=== PATIENT | female | born 1930 | race Asian ===

== ENCOUNTER 2016-04-06 20:01 | Inpatient (IN) | payer OTHER ==
[~2016-04-06] VITALS: Ht 149.9 cm; Wt 44.0 kg
[~2016-04-06 20:01] MED LIST: ACET-66 PO; AMIO200T44 PO; BISA10S PR; DSS100 PO; INSNOV SQ; LORA10TA60 PO; MAAL30 PO; MOM30 PO; PANT40TA25 PO; RIVA15T PO; SIMV-259 PO
[2016-04-06 20:37] LABS: BASOPHILS % (AUTO) 0.2 % (0.0-2.0); EOSINOPHILS % (AUTO) 0.5 % (1.0-6.0); HEMATOCRIT 41.2 % (36-46); HEMOGLOBIN 13.8 g/dL (12.0-16.0); LYMPHOCYTES # (AUTO) 1.9 K/uL (1.0-4.8); MEAN CORPUSCULAR HEMOGLOBIN 29.1 pg (26.0-34.0); MEAN CORPUSCULAR HGB CONC 33.5 G/dL (31.0-37.0); MEAN CORPUSCULAR VOLUME 87 fL (80-100); MONOCYTES # (AUTO) 0.8 K/uL (0.1-1.0); MONOCYTES % (AUTO) 5.1 % (2.0-9.0); NEUTROPHILS # (AUTO) 13.1 K/uL (1.8-7.7); NEUTROPHILS % (AUTO) 82.2 % (40.0-70.0); PLATELET COUNT (AUTO) 230 K/uL (150-450); RED BLOOD CELL COUNT(AUTO) 4.73 MIL/uL (4.00-5.20); RED CELL DISTRIBUTION WIDTH 11.9 % (11.5-14.5); WHITE BLOOD COUNT (AUTO) 15.9 K/uL (4.5-11.0)
[2016-04-06] MEDS ORDERED: LEVO50TA11 PO (20:39)
[2016-04-06] MEDS ORDERED: ATOR10TA69 PO (20:39)
[2016-04-06] MEDS ORDERED: METO-325 PO (20:39)
[2016-04-06] MEDS ORDERED: AMLO5TAB66 PO (20:39)
[2016-04-06] MEDS ORDERED: ROSU20 PO (20:39)
[2016-04-06] MEDS ORDERED: LOSA25TA21 PO (20:39)
[2016-04-06] MEDS ORDERED: ASPI-996 PO (20:39)
[2016-04-06] MEDS ORDERED: PARO10TA71 PO (20:39)
[2016-04-06] MEDS ORDERED: NITR0.4T SL (20:39)
[2016-04-06] MEDS ORDERED: METO-323 PO (20:39)
[2016-04-06] MEDS ORDERED: METF500T4 PO (20:39)
[2016-04-06 20:55] LABS: ALANINE AMINOTRANSFERASE 22 U/L (12-78); ALBUMIN 3.5 g/dL (3.4-5.0); ANION GAP 10 mmol/L (8-16); ASPARTATE AMINOTRANSFERASE 20 U/L (15-37); BILIRUBIN,TOTAL 0.4 mg/dL (0.1-1.0); CALCIUM, TOTAL 8.9 mg/dL (8.8-10.5); CARBON DIOXIDE 27 mmol/L (22-29); CHLORIDE 99 mmol/L (98-107); CREATINE KINASE, TOTAL 48 U/L (26-192); CREATININE 1.04 mg/dL (0.60-1.30); GLOMERULAR FILTR. RATE CALC 51 mL/min (>60); POTASSIUM 3.7 mmol/L (3.5-5.1); SODIUM SERUM 136 mmol/L (136-145); TOTAL PROTEIN, SERUM 7.8 g/dL (6.4-8.2)
[2016-04-06 20:57] LABS: INR 1.4 (0.9-1.1); PROTHROMBIN TIME 15.3 SEC (9.4-11.6)
[2016-04-06 21:03] LABS: B-TYPE NATRIURETIC PEPTIDE 219 pg/mL (0-100)
[2016-04-06 21:20] LABS: GLUCOSE,POINT OF CARE 259 MG/DL (70-110)
[2016-04-06 21:25] LABS: UREA NITROGEN, BLOOD 17 mg/dL (7-18)
[2016-04-06] MEDS ORDERED: AMIODARONE HCL 50 MG/ML 3 ML VIAL IVP ONE (21:30)
[2016-04-06 21:55] LABS: ADD UA MICROSCOPIC YES; APPEARANCE,URINE CLOUDY (CLEAR); GLUCOSE, URINE (UA) 100 mg/dL (NEGATIVE); KETONES,URINE NEGATIVE (NEGATIVE); LEUKOCYTE ESTERASE ,URINE SMALL (NEGATIVE); OCCULT BLOOD,URINE TRACE (NEGATIVE); PH,URINE 6.5 (5.0-8.0); PROTEIN,URINE POS 1+ (NEGATIVE)
[2016-04-06 21:59] LABS: WBC,URINE 26-50 /HPF (0-5)
[2016-04-06 22:00] LABS: SQUAMOUS EPITHELIAL CELL,UR Moderate /LPF (None Seen)
[2016-04-06] MEDS ORDERED: DIGOXIN 250 MCG/ML 2 ML AMP IVP ONE (22:45)
[2016-04-06] MEDS ORDERED: ZOLPIDEM TARTRATE 5 MG TABLET PO PRN (23:15)
[2016-04-06] MEDS ORDERED: CefTRIAXone 1 GM/DEXTROSE 50 ML IV ONE (23:15)
[2016-04-06] MEDS ORDERED: OxyCODONE HCL/ACETAMINOPHEN 5-325 MG TABLET PO PRN (23:15)
[2016-04-06] MEDS ORDERED: ONDANSETRON HCL 4 MG/2 ML VIAL IVP PRN (23:15)
[2016-04-06] MEDS ORDERED: BISACODYL 10 MG RECTAL RECTAL SUPPOSITORY PR PRN (23:15)
[2016-04-06] MEDS ORDERED: MAGNESIUM HYDROXIDE SUSPENSION 30 ML UDCUP PO PRN (23:15)
[2016-04-06] MEDS ORDERED: ACETAMINOPHEN 325 MG TABLET PO PRN (23:15)
[2016-04-06] MEDS ORDERED: DEXTROSE 50%-WATER 25 GM/50 ML SYRINGE IVP PRN (23:30)
[2016-04-07] VITALS (7 sets, daily range): BP systolic 106–134; BP diastolic 53–66
[2016-04-07] MEDS ORDERED: HEPARIN SODIUM,PORCINE 5,000 UNITS/ML VIAL SQ SCH
[2016-04-07] MEDS: INSULIN ASPART 100 UNITS/ML SQ PRN ×5 (00:27→21:48)
[2016-04-07] MEDS: LEVOTHYROXINE SODIUM 50 MCG TABLET PO SCH (06:26)
[2016-04-07 06:43] LABS: GLUCOSE COMMENT 1 Received Meds; GLUCOSE,POINT OF CARE 274 MG/DL (70-110)
[2016-04-07 06:47] LABS: BASOPHILS % (AUTO) 0.3 % (0.0-2.0); EOSINOPHILS % (AUTO) 0.4 % (1.0-6.0); HEMATOCRIT 35.9 % (36-46); HEMOGLOBIN 11.8 g/dL (12.0-16.0); LYMPHOCYTES # (AUTO) 2.3 K/uL (1.0-4.8); LYMPHOCYTES % (AUTO) 18.4 % (22.0-44.0); MEAN CORPUSCULAR VOLUME 88 fL (80-100); MONOCYTES # (AUTO) 0.8 K/uL (0.1-1.0); MONOCYTES % (AUTO) 6.2 % (2.0-9.0); NEUTROPHILS # (AUTO) 9.4 K/uL (1.8-7.7); NEUTROPHILS % (AUTO) 74.7 % (40.0-70.0); PLATELET COUNT (AUTO) 205 K/uL (150-450); RED BLOOD CELL COUNT(AUTO) 4.08 MIL/uL (4.00-5.20); RED CELL DISTRIBUTION WIDTH 12.1 % (11.5-14.5); WHITE BLOOD COUNT (AUTO) 12.5 K/uL (4.5-11.0)
[2016-04-07 07:19] LABS: BILIRUBIN,TOTAL 0.4 mg/dL (0.1-1.0); CALCIUM, TOTAL 8.5 mg/dL (8.8-10.5); CREATININE 0.93 mg/dL (0.60-1.30); POTASSIUM 3.7 mmol/L (3.5-5.1); TOTAL PROTEIN, SERUM 6.7 g/dL (6.4-8.2)
[2016-04-07 07:55] LABS: HEMOGLOBIN A1C 8.4 % (4.5-6.2)
[2016-04-07] MEDS ORDERED: ROSUVASTATIN CALCIUM 20 MG TABLET PO SCH (09:00)
[2016-04-07] MEDS: ATORVASTATIN CALCIUM 10 MG TABLET PO SCH (09:00)
[2016-04-07] MEDS: METOPROLOL SUCCINATE 25 MG ER TABLET PO SCH (09:41)
[2016-04-07] MEDS: MetFORMIN HCL 500 MG TABLET PO SCH ×2 (09:41→18:41)
[2016-04-07] MEDS: LOSARTAN POTASSIUM 25 MG TABLET PO SCH (09:41)
[2016-04-07] MEDS: AmLODIPine BESYLATE 5 MG TABLET PO SCH (09:41)
[2016-04-07] MEDS: PANTOPRAZOLE SODIUM 40 MG DR TABLET PO SCH (09:41)
[2016-04-07] MEDS: ASPIRIN 325 MG EC TABLET PO SCH (09:42)
[2016-04-07] MEDS: PARoxetine HCL 10 MG TABLET PO SCH (09:42)
[2016-04-07] MEDS ORDERED: RIVAROXABAN 15 MG TABLET PO SCH (17:30)
[2016-04-07 17:53] LABS: GLUCOSE COMMENT 1 Received Meds; GLUCOSE,POINT OF CARE 143 MG/DL (70-110)
[2016-04-07 18:01] LABS: GLUCOSE COMMENT 1 Received Meds; GLUCOSE,POINT OF CARE 226 MG/DL (70-110)
[2016-04-07 18:01] LABS: GLUCOSE COMMENT 1 Received Meds; GLUCOSE,POINT OF CARE 199 MG/DL (70-110)
[2016-04-07] MEDS ORDERED: METOPROLOL SUCCINATE 50 MG ER TABLET PO SCH (21:00)
[2016-04-07] MEDS ORDERED: SODIUM CHLORIDE 0.9% 250 ML IV ONE (21:44)
[2016-04-07] MEDS ORDERED: CefTRIAXone 1 GM/DEXTROSE 50 ML IV SCH (22:00)
[2016-04-08 05:02] VITALS: BP 137/72
[2016-04-08] MEDS: LEVOTHYROXINE SODIUM 50 MCG TABLET PO SCH (05:33)
[2016-04-08] MEDS: INSULIN ASPART 100 UNITS/ML SQ PRN (05:37)
[2016-04-08 07:20] VITALS: BP 139/70
[2016-04-08] MEDS: MetFORMIN HCL 500 MG TABLET PO SCH (07:58)
[2016-04-08] MEDS: METOPROLOL SUCCINATE 25 MG ER TABLET PO SCH (08:07)
[2016-04-08] MEDS: ATORVASTATIN CALCIUM 10 MG TABLET PO SCH (08:07)
[2016-04-08] MEDS: PARoxetine HCL 10 MG TABLET PO SCH (08:07)
[2016-04-08] MEDS: AmLODIPine BESYLATE 5 MG TABLET PO SCH (08:07)
[2016-04-08] MEDS: ASPIRIN 325 MG EC TABLET PO SCH (08:07)
[2016-04-08] MEDS: LOSARTAN POTASSIUM 25 MG TABLET PO SCH (08:07)
[2016-04-08] MEDS: PANTOPRAZOLE SODIUM 40 MG DR TABLET PO SCH (08:08)
[2016-04-08 10:56] VITALS: BP 143/68
[2016-04-08] MEDS ORDERED: SULF1TAB42 PO (14:02)
[2016-04-08 15:02] VITALS: BP 124/56
[2016-04-08 17:32] LABS: GLUCOSE COMMENT 1 Received Meds; GLUCOSE,POINT OF CARE 166 MG/DL (70-110)
[2016-04-08 17:37] LABS: GLUCOSE COMMENT 1 Received Meds; GLUCOSE,POINT OF CARE 171 MG/DL (70-110)
[2016-04-12 20:41] LABS: GLUCOSE,POINT OF CARE 123 MG/DL (70-110)
== END 2016-04-08 16:40 | disposition home or self-care (01) | DRG 872 ==
LOC: EMS 20:03 → 5N 23:06
PROVIDERS: ADMIT Hospitalist; ATTEND Family Medicine
DX: A41.9 Sepsis, unspecified organism (principal); N12 Tubulo-interstitial nephritis, not specified as acute or chronic; E11.65 Type 2 diabetes mellitus with hyperglycemia; I48.91 Unspecified atrial fibrillation; E03.9 Hypothyroidism, unspecified; E78.00 Pure hypercholesterolemia, unspecified; E78.5 Hyperlipidemia, unspecified; I10 Essential (primary) hypertension; F32.9 Major depressive disorder, single episode, unspecified; G90.8 Other disorders of autonomic nervous system; F17.210 Nicotine dependence, cigarettes, uncomplicated; Z95.0 Presence of cardiac pacemaker; Z91.14 Patient's other noncompliance with medication regimen; Z79.899 Other long term (current) drug therapy; Z79.82 Long term (current) use of aspirin; Z82.49 Family history of ischemic heart disease and other diseases of the circulatory system; Z83.3 Family history of diabetes mellitus
CPT/HCPCS: 82962; 83036; 87086; 93005; 93306; 93880; 96365; 96375; 99285; J0282; J0696; J1160; J7050

== ENCOUNTER 2016-06-29 18:58 | Inpatient (IN) | payer OTHER ==
[~2016-06-29] VITALS: Ht 152.4 cm; Wt 39.5 kg
[~2016-06-29 18:58] MED LIST changes: -ACET-66 PO; -AMIO200T44 PO; +AMLO5TAB66 PO; +ASPI-996 PO; +ATOR10TA69 PO; -BISA10S PR; -DSS100 PO; -INSNOV SQ; +LEVO50TA11 PO; -LORA10TA60 PO; +LOSA25TA21 PO; -MAAL30 PO; +METF500T4 PO; +METO-323 PO; -MOM30 PO; +NITR0.4T SL; -PANT40TA25 PO; +PARO10TA71 PO; -SIMV-259 PO; +SULF1TAB42 PO
[2016-06-29 19:17] LABS: GLUCOSE,POINT OF CARE 382 MG/DL (70-110)
[2016-06-29] MEDS ORDERED: SITA50 PO (19:26)
[2016-06-29] MEDS ORDERED: SODIUM CHLORIDE 0.9% 1,000 ML IV ONE (20:45)
[2016-06-29 21:12] LABS: GLUCOSE,POINT OF CARE 328 MG/DL (70-110)
[2016-06-29 21:31] LABS: BASOPHILS % (AUTO) 0.6 % (0.0-2.0); EOSINOPHILS % (AUTO) 0.3 % (1.0-6.0); HEMATOCRIT 40.5 % (36-46); HEMOGLOBIN 13.3 g/dL (12.0-16.0); LYMPHOCYTES # (AUTO) 1.6 K/uL (1.0-4.8); LYMPHOCYTES % (AUTO) 17.3 % (22.0-44.0); MEAN CORPUSCULAR HEMOGLOBIN 28.7 pg (26.0-34.0); MEAN CORPUSCULAR HGB CONC 32.8 G/dL (31.0-37.0); MEAN CORPUSCULAR VOLUME 88 fL (80-100); MONOCYTES % (AUTO) 11.1 % (2.0-9.0); NEUTROPHILS # (AUTO) 6.7 K/uL (1.8-7.7); NEUTROPHILS % (AUTO) 70.7 % (40.0-70.0); PLATELET COUNT (AUTO) 173 K/uL (150-450); RED BLOOD CELL COUNT(AUTO) 4.62 MIL/uL (4.00-5.20); RED CELL DISTRIBUTION WIDTH 13.4 % (11.5-14.5); WHITE BLOOD COUNT (AUTO) 9.5 K/uL (4.5-11.0)
[2016-06-29 21:42] LABS: CALCIUM, TOTAL 9.3 mg/dL (8.8-10.5); CREATININE 2.75 mg/dL (0.60-1.30); POTASSIUM 4.3 mmol/L (3.5-5.1)
[2016-06-29 21:43] LABS: INR 1.1 (0.9-1.1); PROTHROMBIN TIME 11.8 SEC (9.4-11.6)
[2016-06-29 21:49] LABS: ALBUMIN 3.9 g/dL (3.4-5.0); BILIRUBIN,TOTAL 0.8 mg/dL (0.1-1.0)
[2016-06-29] MEDS ORDERED: LABETALOL HCL 5 MG/ML 20 ML VIAL IVP ONE ×2 (22:00→22:30)
[2016-06-29] MEDS ORDERED: ASPIRIN 81 MG CHEWABLE TABLET PO ONE (22:15)
[2016-06-29] MEDS ORDERED: NITROGLYCERIN 2% (1 GM=INCH) PACKET TP ONE (22:15)
[2016-06-29] MEDS ORDERED: LORazepam 2 MG/ML VIAL IVP ONE (23:00)
[2016-06-29] MEDS ORDERED: LABETALOL HCL 5 MG/ML 20 ML VIAL IVP PRN (23:15)
[2016-06-29] MEDS ORDERED: ACETAMINOPHEN 325 MG TABLET PO PRN (23:15)
[2016-06-29] MEDS ORDERED: 0.9% SODIUM CHLORIDE 10 ML SYRINGE IVP PRN (23:15)
[2016-06-29] MEDS ORDERED: ONDANSETRON HCL 4 MG/2 ML VIAL IVP PRN (23:15)
[2016-06-30] MEDS ORDERED: DILTIAZEM HCL 5 MG/ML 5 ML VIAL IVP ONE (00:30)
[2016-06-30 02:50] VITALS: BP 183/99
[2016-06-30 03:24] VITALS: BP 135/73
[2016-06-30] MEDS ORDERED: PNEUMOCOCCAL VACCINE POLYVALENT 0.5 ML VIAL [PPSV23] IM ONE (05:30)
[2016-06-30 06:51] LABS: ALBUMIN 3.2 g/dL (3.4-5.0); BILIRUBIN,TOTAL 0.7 mg/dL (0.1-1.0); CALCIUM, TOTAL 8.3 mg/dL (8.8-10.5); CREATININE 2.59 mg/dL (0.60-1.30); TOTAL PROTEIN, SERUM 6.5 g/dL (6.4-8.2)
[2016-06-30 07:20] LABS: POTASSIUM 2.9 mmol/L (3.5-5.1)
[2016-06-30 07:30] VITALS: BP 184/74
[2016-06-30] MEDS ORDERED: HydrALAZINE HCL 20 MG/ML VIAL IVP PRN (09:45)
[2016-06-30] MEDS ORDERED: DEXTROSE 50%-WATER 25 GM/50 ML SYRINGE IVP PRN (09:45)
[2016-06-30] MEDS ORDERED: POTASSIUM CHLORIDE 20 MEQ ER TABLET PO ONE ×2 (10:00→12:45)
[2016-06-30 11:02] LABS: MAGNESIUM 2.1 mg/dL (1.80-2.40)
[2016-06-30 11:04] VITALS: BP 147/87
[2016-06-30] MEDS ORDERED: NITROGLYCERIN 0.4 MG SUBLINGUAL TABLET #25 SL PRN (11:45)
[2016-06-30] MEDS ORDERED: ASPIRIN 325 MG EC TABLET PO SCH (11:45)
[2016-06-30] MEDS ORDERED: SULFAMETHOX/TRIMETH DS 800-160 MG/TABLET PO SCH (11:45)
[2016-06-30] MEDS: PARoxetine HCL 10 MG TABLET PO SCH (12:29)
[2016-06-30] MEDS: METOPROLOL SUCCINATE 25 MG ER TABLET PO SCH (12:29)
[2016-06-30] MEDS: AmLODIPine BESYLATE 5 MG TABLET PO SCH (12:29)
[2016-06-30] MEDS: ATORVASTATIN CALCIUM 10 MG TABLET PO SCH (12:29)
[2016-06-30] MEDS: LEVOTHYROXINE SODIUM 50 MCG TABLET PO SCH (12:29)
[2016-06-30] MEDS: LOSARTAN POTASSIUM 25 MG TABLET PO SCH (12:29)
[2016-06-30] MEDS: INSULIN ASPART 100 UNITS/ML SQ PRN ×2 (12:30→17:55)
[2016-06-30 14:00] VITALS: BP 158/82
[2016-06-30] MEDS: SitaGLIPtin PHOSPHATE 50 MG TABLET PO SCH (15:41)
[2016-06-30] MEDS: HEPARIN SODIUM,PORCINE 5,000 UNITS/ML VIAL SQ SCH ×2 (15:41→23:47)
[2016-06-30] MEDS: RIVAROXABAN 15 MG TABLET PO SCH (17:54)
[2016-06-30] MEDS ORDERED: MetFORMIN HCL 500 MG TABLET PO SCH (18:00)
[2016-06-30 19:42] VITALS: BP 135/80
[2016-06-30 19:54] LABS: CALCIUM, TOTAL 8.8 mg/dL (8.8-10.5); CREATININE 2.65 mg/dL (0.60-1.30); POTASSIUM 4.1 mmol/L (3.5-5.1)
[2016-06-30 22:02] LABS: GLUCOSE COMMENT 1 Received Meds; GLUCOSE,POINT OF CARE 188 MG/DL (70-110)
[2016-07-01] VITALS (8 sets, daily range): BP systolic 140–182; BP diastolic 60–87
[2016-07-01] MEDS: LEVOTHYROXINE SODIUM 50 MCG TABLET PO SCH (05:36)
[2016-07-01] MEDS: INSULIN ASPART 100 UNITS/ML SQ PRN ×3 (06:09→21:04)
[2016-07-01 07:04] LABS: CHOL/HDL RATIO 2.6 (3.9-5.7); CREATININE 2.55 mg/dL (0.60-1.30); MAGNESIUM 2.2 mg/dL (1.80-2.40); POTASSIUM 4.5 mmol/L (3.5-5.1); THYROID STIMULATING HORMONE 0.28 uIU/mL (0.36-3.74)
[2016-07-01] MEDS: METOPROLOL SUCCINATE 25 MG ER TABLET PO SCH (07:55)
[2016-07-01] MEDS: HEPARIN SODIUM,PORCINE 5,000 UNITS/ML VIAL SQ SCH ×2 (07:55→16:16)
[2016-07-01] MEDS: PARoxetine HCL 10 MG TABLET PO SCH (07:55)
[2016-07-01] MEDS: SitaGLIPtin PHOSPHATE 50 MG TABLET PO SCH (07:55)
[2016-07-01] MEDS: AmLODIPine BESYLATE 5 MG TABLET PO SCH (07:55)
[2016-07-01] MEDS: ATORVASTATIN CALCIUM 10 MG TABLET PO SCH (07:55)
[2016-07-01] MEDS: LOSARTAN POTASSIUM 25 MG TABLET PO SCH (08:22)
[2016-07-01 08:52] LABS: BASOPHILS % (AUTO) 0.4 % (0.0-2.0); EOSINOPHILS % (AUTO) 0.3 % (1.0-6.0); HEMATOCRIT 41.3 % (36-46); HEMOGLOBIN 13.6 g/dL (12.0-16.0); LYMPHOCYTES # (AUTO) 1.3 K/uL (1.0-4.8); LYMPHOCYTES % (AUTO) 11.7 % (22.0-44.0); MEAN CORPUSCULAR HEMOGLOBIN 29.1 pg (26.0-34.0); MEAN CORPUSCULAR HGB CONC 32.9 G/dL (31.0-37.0); MEAN CORPUSCULAR VOLUME 88 fL (80-100); MONOCYTES # (AUTO) 0.9 K/uL (0.1-1.0); MONOCYTES % (AUTO) 8.2 % (2.0-9.0); NEUTROPHILS # (AUTO) 8.9 K/uL (1.8-7.7); NEUTROPHILS % (AUTO) 79.4 % (40.0-70.0); PLATELET COUNT (AUTO) 173 K/uL (150-450); RED BLOOD CELL COUNT(AUTO) 4.68 MIL/uL (4.00-5.20); RED CELL DISTRIBUTION WIDTH 13.5 % (11.5-14.5); WHITE BLOOD COUNT (AUTO) 11.3 K/uL (4.5-11.0)
[2016-07-01] MEDS: AZITHROMYCIN 250 MG TABLET PO SCH (12:53)
[2016-07-01] MEDS ORDERED: SODIUM CHLORIDE 0.9% 250 ML IV ONE (13:09)
[2016-07-01] MEDS: CefTRIAXone 1 GM/DEXTROSE 50 ML IV SCH (13:40)
[2016-07-01] MEDS: RIVAROXABAN 15 MG TABLET PO SCH (17:57)
[2016-07-01 18:19] LABS: APPEARANCE,URINE CLOUDY (CLEAR); GLUCOSE, URINE (UA) 100 mg/dL (NEGATIVE); KETONES,URINE NEGATIVE (NEGATIVE); LEUKOCYTE ESTERASE ,URINE SMALL (NEGATIVE); PH,URINE 5.5 (5.0-8.0); PROTEIN,URINE POS 1+ (NEGATIVE)
[2016-07-01 18:27] LABS: ADD UA MICROSCOPIC YES; OCCULT BLOOD,URINE SMALL (NEGATIVE)
[2016-07-01 18:28] LABS: SQUAMOUS EPITHELIAL CELL,UR Few /LPF (None Seen)
[2016-07-01] MEDS: MIRTAZAPINE 15 MG TABLET PO SCH (20:23)
[2016-07-01] MEDS ORDERED: 0.9% SODIUM CHLORIDE 10 ML SYRINGE IVP PRN (23:15)
[2016-07-02] MEDS: HEPARIN SODIUM,PORCINE 5,000 UNITS/ML VIAL SQ SCH ×3 (01:05→16:50)
[2016-07-02 04:30] VITALS: BP 154/86
[2016-07-02] MEDS: LEVOTHYROXINE SODIUM 50 MCG TABLET PO SCH ×2 (05:32→06:30)
[2016-07-02 06:56] LABS: BASOPHILS % (AUTO) 0.4 % (0.0-2.0); EOSINOPHILS % (AUTO) 0.5 % (1.0-6.0); HEMATOCRIT 38.8 % (36-46); HEMOGLOBIN 12.7 g/dL (12.0-16.0); LYMPHOCYTES # (AUTO) 1.7 K/uL (1.0-4.8); LYMPHOCYTES % (AUTO) 16.8 % (22.0-44.0); MEAN CORPUSCULAR HEMOGLOBIN 28.7 pg (26.0-34.0); MEAN CORPUSCULAR HGB CONC 32.8 G/dL (31.0-37.0); MEAN CORPUSCULAR VOLUME 88 fL (80-100); MONOCYTES # (AUTO) 0.9 K/uL (0.1-1.0); MONOCYTES % (AUTO) 8.9 % (2.0-9.0); NEUTROPHILS # (AUTO) 7.3 K/uL (1.8-7.7); NEUTROPHILS % (AUTO) 73.4 % (40.0-70.0); PLATELET COUNT (AUTO) 161 K/uL (150-450); RED BLOOD CELL COUNT(AUTO) 4.43 MIL/uL (4.00-5.20); RED CELL DISTRIBUTION WIDTH 13.4 % (11.5-14.5)
[2016-07-02 07:31] LABS: GLUCOSE COMMENT 1 Received Meds; GLUCOSE,POINT OF CARE 174 MG/DL (70-110)
[2016-07-02 07:37] VITALS: BP 154/80
[2016-07-02 07:42] LABS: CALCIUM, TOTAL 9.1 mg/dL (8.8-10.5); CREATININE 2.42 mg/dL (0.60-1.30); POTASSIUM 3.8 mmol/L (3.5-5.1)
[2016-07-02] MEDS: SitaGLIPtin PHOSPHATE 50 MG TABLET PO SCH (07:54)
[2016-07-02] MEDS: ATORVASTATIN CALCIUM 10 MG TABLET PO SCH (07:55)
[2016-07-02] MEDS: LOSARTAN POTASSIUM 25 MG TABLET PO SCH (07:55)
[2016-07-02] MEDS: METOPROLOL SUCCINATE 25 MG ER TABLET PO SCH (07:55)
[2016-07-02] MEDS: AZITHROMYCIN 250 MG TABLET PO SCH (07:55)
[2016-07-02] MEDS: AmLODIPine BESYLATE 5 MG TABLET PO SCH (07:55)
[2016-07-02] MEDS: DULoxetine HCL 20 MG CAPSULE PO SCH (07:55)
[2016-07-02] MEDS ORDERED: MODAFINIL 100 MG TABLET PO SCH (09:00)
[2016-07-02] MEDS ORDERED: AMIODARONE HCL 150 MG in DEXTROSE 5%-WATER 97 ML IV ONE (09:30)
[2016-07-02] MEDS ORDERED: AMIODARONE HCL 360 MG in DEXTROSE 5%-WATER 242.8 ML IV ONE (09:30)
[2016-07-02] MEDS ORDERED: DIGOXIN 250 MCG/ML 2 ML AMP IVP ONE (09:45)
[2016-07-02 11:12] VITALS: BP 123/78
[2016-07-02] MEDS: INSULIN ASPART 100 UNITS/ML SQ PRN ×3 (12:02→20:35)
[2016-07-02] MEDS: CefTRIAXone 1 GM/DEXTROSE 50 ML IV SCH (14:36)
[2016-07-02 15:02] VITALS: BP 102/56
[2016-07-02] MEDS ORDERED: AMIODARONE HCL 540 MG in DEXTROSE 5%-WATER 239.2 ML IV ONE (15:30)
[2016-07-02] MEDS: RIVAROXABAN 15 MG TABLET PO SCH (16:50)
[2016-07-02] MEDS ORDERED: LORazepam 2 MG/ML VIAL IVP PRN (19:00)
[2016-07-02 19:26] LABS: GLUCOSE,POINT OF CARE 151 MG/DL (70-110)
[2016-07-02 19:26] LABS: GLUCOSE,POINT OF CARE 376 MG/DL (70-110)
[2016-07-02 19:44] VITALS: BP 130/61
[2016-07-02] MEDS: MIRTAZAPINE 15 MG TABLET PO SCH (20:26)
[2016-07-02 23:43] VITALS: BP 144/79
[2016-07-03] MEDS: HEPARIN SODIUM,PORCINE 5,000 UNITS/ML VIAL SQ SCH ×3 (00:18→16:49)
[2016-07-03] MEDS: LEVOTHYROXINE SODIUM 50 MCG TABLET PO SCH (05:18)
[2016-07-03 05:53] VITALS: BP 150/73
[2016-07-03] MEDS: INSULIN ASPART 100 UNITS/ML SQ PRN ×4 (05:54→21:32)
[2016-07-03 07:22] VITALS: BP 148/83
[2016-07-03] MEDS ORDERED: AMIODARONE HCL 750 MG in DEXTROSE 5%-WATER 485 ML IV SCH (09:30)
[2016-07-03] MEDS: AmLODIPine BESYLATE 5 MG TABLET PO SCH (09:38)
[2016-07-03] MEDS: LOSARTAN POTASSIUM 25 MG TABLET PO SCH (09:38)
[2016-07-03 09:57] LABS: GLUCOSE COMMENT 1 Received Meds; GLUCOSE,POINT OF CARE 220 MG/DL (70-110)
[2016-07-03 10:51] VITALS: BP 144/75
[2016-07-03] MEDS: AZITHROMYCIN 250 MG TABLET PO SCH (12:16)
[2016-07-03] MEDS: METOPROLOL SUCCINATE 25 MG ER TABLET PO SCH (12:16)
[2016-07-03] MEDS: SitaGLIPtin PHOSPHATE 50 MG TABLET PO SCH (12:16)
[2016-07-03] MEDS: ATORVASTATIN CALCIUM 10 MG TABLET PO SCH (12:17)
[2016-07-03] MEDS: DULoxetine HCL 20 MG CAPSULE PO SCH (12:17)
[2016-07-03] MEDS: CefTRIAXone 1 GM/DEXTROSE 50 ML IV SCH (14:35)
[2016-07-03 14:54] VITALS: BP 158/85
[2016-07-03] MEDS: RIVAROXABAN 15 MG TABLET PO SCH (16:50)
[2016-07-03] MEDS ORDERED: 0.9% SODIUM CHLORIDE 10 ML SYRINGE IVP PRN (17:00)
[2016-07-03 19:40] VITALS: BP 135/66
[2016-07-03] MEDS ORDERED: BISACODYL 5 MG EC TABLET PO PRN (21:15)
[2016-07-03] MEDS: MIRTAZAPINE 15 MG TABLET PO SCH (21:19)
[2016-07-03] MEDS: MEGESTROL ACETATE 400 MG/10 ML SUSPENSION UDCUP PO SCH (21:19)
[2016-07-03] MEDS: AMIODARONE HCL 200 MG TABLET PO SCH (21:19)
[2016-07-03 22:52] LABS: GLUCOSE COMMENT 1 Received Meds; GLUCOSE,POINT OF CARE 249 MG/DL (70-110)
[2016-07-04 00:06] VITALS: BP 127/64
[2016-07-04] MEDS: HEPARIN SODIUM,PORCINE 5,000 UNITS/ML VIAL SQ SCH ×3 (00:42→17:16)
[2016-07-04 04:03] VITALS: BP 132/69
[2016-07-04] MEDS ORDERED: BISACODYL 10 MG RECTAL RECTAL SUPPOSITORY PR PRN (05:15)
[2016-07-04] MEDS: LEVOTHYROXINE SODIUM 50 MCG TABLET PO SCH ×2 (05:35→06:17)
[2016-07-04] MEDS: INSULIN ASPART 100 UNITS/ML SQ PRN ×3 (06:07→17:06)
[2016-07-04 07:23] VITALS: BP 128/67
[2016-07-04] MEDS: LOSARTAN POTASSIUM 25 MG TABLET PO SCH (09:40)
[2016-07-04] MEDS: AZITHROMYCIN 250 MG TABLET PO SCH (09:40)
[2016-07-04] MEDS: AMIODARONE HCL 200 MG TABLET PO SCH (09:40)
[2016-07-04] MEDS: METOPROLOL SUCCINATE 25 MG ER TABLET PO SCH (09:40)
[2016-07-04] MEDS: DULoxetine HCL 20 MG CAPSULE PO SCH (09:40)
[2016-07-04] MEDS: MEGESTROL ACETATE 400 MG/10 ML SUSPENSION UDCUP PO SCH (09:40)
[2016-07-04] MEDS: SitaGLIPtin PHOSPHATE 50 MG TABLET PO SCH (09:40)
[2016-07-04] MEDS: AmLODIPine BESYLATE 5 MG TABLET PO SCH (09:40)
[2016-07-04] MEDS: ATORVASTATIN CALCIUM 10 MG TABLET PO SCH (09:40)
[2016-07-04 11:02] VITALS: BP 125/67
[2016-07-04] MEDS: CefTRIAXone 1 GM/DEXTROSE 50 ML IV SCH (13:49)
[2016-07-04] MEDS: RIVAROXABAN 15 MG TABLET PO SCH (17:16)
[2016-07-04] MEDS ORDERED: AMIO200T44 PO (17:42)
[2016-07-04] MEDS ORDERED: ATOR10TA84 PO (17:43)
[2016-07-04] MEDS ORDERED: AMLO-511 PO (17:43)
[2016-07-04] MEDS ORDERED: MEGE400O4 PO (17:44)
[2016-07-04] MEDS ORDERED: MIRT15 PO (17:45)
[2016-07-04] MEDS ORDERED: BISA10S PR (17:46)
[2016-07-04] MEDS ORDERED: BACTDSB PO (17:47)
[2016-07-04] MEDS ORDERED: INSNOV SQ (17:55)
[2016-07-04] MEDS ORDERED: AMIODARONE HCL 200 MG TABLET PO SCH (21:00)
[2016-07-05 06:58] LABS: GLUCOSE COMMENT 1 Received Meds; GLUCOSE,POINT OF CARE 164 MG/DL (70-110)
[2016-07-05 06:58] LABS: GLUCOSE,POINT OF CARE 241 MG/DL (70-110)
[2016-07-06 18:18] LABS: GLUCOSE COMMENT 1 Received Meds; GLUCOSE,POINT OF CARE 189 MG/DL (70-110)
[2016-07-07 06:30] LABS: GLUCOSE COMMENT 1 Received Meds; GLUCOSE,POINT OF CARE 342 MG/DL (70-110)
== END 2016-07-04 18:40 | DRG 280 ==
LOC: EMS 18:59 → 5S 23:44 → 5N 06-30 10:10
PROVIDERS: ADMIT Family Medicine; ATTEND Family Medicine
DX: I21.4 Non-ST elevation (NSTEMI) myocardial infarction (principal); J18.9 Pneumonia, unspecified organism; G93.40 Encephalopathy, unspecified; I16.1 Hypertensive emergency; N18.4 Chronic kidney disease, stage 4 (severe); N17.9 Acute kidney failure, unspecified; I47.2 Ventricular tachycardia; Z68.1 Body mass index [BMI] 19.9 or less, adult; E44.1 Mild protein-calorie malnutrition; E11.22 Type 2 diabetes mellitus with diabetic chronic kidney disease; E03.9 Hypothyroidism, unspecified; E78.5 Hyperlipidemia, unspecified; I12.9 Hypertensive chronic kidney disease with stage 1 through stage 4 chronic kidney disease, or unspecified chronic kidney disease; F03.90 Unspecified dementia, unspecified severity, without behavioral disturbance, psychotic disturbance, mood disturbance, and anxiety; I48.0 Paroxysmal atrial fibrillation; I49.5 Sick sinus syndrome; M19.90 Unspecified osteoarthritis, unspecified site; Z66 Do not resuscitate; Z79.01 Long term (current) use of anticoagulants; Z79.899 Other long term (current) drug therapy; Z91.19 Patient's noncompliance with other medical treatment and regimen; Z95.0 Presence of cardiac pacemaker; W18.39XA Other fall on same level, initial encounter; Y93.89 Activity, other specified; Y92.098 Other place in other non-institutional residence as the place of occurrence of the external cause; Y99.8 Other external cause status
CPT/HCPCS: 70450; 76770; 82948; 82962; 83036; 83735; 84443; 87086; 93005; 96361; 96374; 96375; 97162; 97167; 97535; 99285; J0282; J0696; J1160; J1644; J2060; J3490; J7030; J7050; J7060